=== PATIENT | male | born 1970 | race American Indian/Alaskan Native ===

== ENCOUNTER 2018-09-26 17:40 | Emergency (ER) | payer OTHER ==
[2018-09-26 17:51] VITALS: BP 124/76
[2018-09-26] MEDS ORDERED: IBUPROFEN PO ONE (20:53)
[2018-09-26] MEDS ORDERED: XYLOCAINE 1% 20 mL INFILTRATI ONE (20:53)
--- NOTE | 2018-09-26 21:10 | Emergency Department Report ---
Abscess Boil HPI - HPI Chief Complaint: Skin/Abscess/Foreign Body Stated Complaint: RT SIDE BOIL ON BUTT/PAIN Time Seen by Provider: 09/26/18 20:20 Duration: 3 Days Location: Sacral/Pilonidal History: No Fever, No Pain, No Purulent Drainage, No Numbness, No Foreign Body, No Previous History, No Insect Bite HPI: 48-year-old -[place] male presents to the emergency room for bolt to his buttocks 2 days. Patient reports he's been using gaze-vos-xwmngyl medication that is not working. Patient has taken nothing for pain. He denies any fever or chills no purulent discharge abdominal pain. Patient has no past medical history currently takes no medications on a daily basis and has no known drug allergies. Home Medications: Previous Rx's Medication Instructions Recorded Last Taken Type Cephalexin [Keflex] 500 mg PO BID #20 capsule 09/26/18 Unknown Rx Ibuprofen [Motrin 600 MG tab] 600 mg PO Q8H PRN #15 tablet 09/26/18 Unknown Rx Allergies/Adverse Reactions: Allergies Allergy/AdvReac Type Severity Reaction Status Date / Time No Known Allergies Allergy Unverified 09/26/18 17:42 ED Review of Systems ROS: Stated complaint: RT SIDE BOIL ON BUTT/PAIN Other details as noted in HPI Comment: All other systems reviewed and negative Skin: lesions ED Past Medical Hx - Past Medical History Previous Medical History?: No - Surgical History Past Surgical History?: No - Social History Smoking Status: Never Smoker Substance Use Type: None - Medications Home Medications: Home Medications Medication Instructions Recorded Confirmed Last Taken Type Cephalexin [Keflex] 500 mg PO BID #20 capsule 09/26/18 Unknown Rx Ibuprofen [Motrin 600 MG tab] 600 mg PO Q8H PRN #15 tablet 09/26/18 Unknown Rx ED Abscess Boil Physical Exam - Exam General: Vital signs noted. No distress. Alert and acting appropriately. Size: 3 cm Exam: Yes Tenderness, Yes Normal Neurologic Exam, Yes Normal Circulation, No Fluctuance, No Surrounding Cellulites/Erythema, No Lymphangitis, No Crepitation, No Heart Murmur I & D Note - I & D Note I & D Note: DATE OF PROCEDURE: 09/26/2018. PREOPERATIVE DIAGNOSES: 1.soft tissue infection perineum. 2. POSTOPERATIVE DIAGNOSES: 1. 2. .........soft tissue infection. Infection appeared to be contained to subcutaneous tissue and there was no evidence of necrotizing soft tissue infection including myonecrosis. OPERATION PERFORMED: Incision and drainage of ..... soft tissue abscess. Provider: Carmen Traore PA-C. ANESTHESIA: Local. DESCRIPTION OF PROCEDURE: The patient was prepped and draped. Seropurulent, somewhat bloody fluid was noted. The infection appeared contained to a golf ping pong sized area in the subcutaneous tissues above the fascia. There was no evidence of myonecrosis, penetration of the fascia or significant extent along the fascia of the infection. We cleaned the area with Betadine and on he was able to express small amount of purulent discharge .......... Dry dressings were applied. The patient appeared to tolerate the procedure well. ED Course Vital Signs 09/26/18 17:49 Temperature 98.6 F Pulse Rate 74 Respiratory 16 Rate Blood Pressure 124/76 [Left] O2 Sat by Pulse 99 Oximetry Critical care attestation.: If time is entered above; I have spent that time in minutes in the direct care of this critically ill patient, excluding procedure time. ED Medical Decision Making - Medical Decision Making Patient has been evaluated by this provider in [facility]. Ibuprofen was given for pain management. Incision and drainage was attempted with not much drainage. Discussed the patient to complete antibiotics as prescribed pain medication as needed and to sit in a warm tub with little Epsom salts and this would help pull the abscess material. Discussed patient if it feels worse to return back to the emergency room for second attempt to incision and drain abscess. Patient verbalizes understanding. ED Disposition Clinical Impression: Abscess of perineum Disposition: -01 TO HOME OR SELFCARE Is pt being admited?: No Does the pt Need Aspirin: No Condition: Stable Instructions: Abscess (ED), Incision and Drainage (ED) Additional Instructions: Complete antibiotics as prescribed and take pain medication as needed. Please sit in warm to hot water with Epsom salt to help her abscess come to a full head. He can return back to the emergency room in 3-5 days if he felt that he needs to be drained. Prescriptions: Cephalexin [Keflex] 500 mg PO BID #20 capsule Ibuprofen [Motrin 600 MG tab] 600 mg PO Q8H PRN #15 tablet PRN Reason: Pain , Severe (7-10) Referrals: [facility] [Other] - 3-5 Days Forms: Work/School Release Form(ED)
== END 2018-09-26 21:20 | disposition home or self-care (01) ==
LOC: ED 17:40
DX: L02.215 Cutaneous abscess of perineum (principal)